=== PATIENT | male | born 1975 | race Caucasian/White ===

== ENCOUNTER 2017-06-01 09:46 | Emergency (ER) | payer OTHER ==
[2017-06-01 10:00] VITALS: BMI 28.0
[2017-06-01] MEDS ORDERED: Piperacillin/Tazobact 3.375 gm 100 ML IV STA (10:31)
--- NOTE | 2017-06-01 10:31 | C.PDOC ---
History Of Present Illness 41 y/o male presents to ED with complaints of onset Left 5th finger injury BRAKER PASSENGER TRAIN. 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 At ED patient is complaining of pain and denies any other associated symptoms at this time. Patient is right hand dominant L 5 FINGER INJURY ONSET BRAKER PASSENGER TRAIN. 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 CO PAIN, INJURY TO AREA. NO OTHER ASSOC INJURY. R HANDED. EXAM MILD DIST NONTOXIC EXT L HAND: +ROTATIONAL DEFORM DISTAL 5TH FINGER AT DIP. NAIL INTACT SKIN 3 CM SPIRAL LAC FROM L 5 DIP TO TIP OF PAD OF FINGER W ACTIVE BLEED; NO GROSS FB REMAINDER INTACT Time Seen by Provider: 06/01/17 10:26 Chief Complaint (Nursing): Abnormal Skin Integrity History Per: Patient History/Exam Limitations: no limitations Onset/Duration Of Symptoms: Hrs, Waxing/Waning Past Medical History Reviewed: Historical Data, Nursing Documentation, Vital Signs Vital Signs: Last Vital Signs Temp 98.2 F 06/01/17 11:46 Pulse 75 06/01/17 11:46 Resp 18 06/01/17 11:46 BP 120/71 06/01/17 11:46 Pulse Ox 98 06/01/17 11:46 Surgical History: No Surg Hx Family History: States: No Known Family Hx - Social History Hx Alcohol Use: Yes Hx Substance Use: No - Immunization History Hx Tetanus Toxoid Vaccination: No Hx Influenza Vaccination: No Hx Pneumococcal Vaccination: No Review Of Systems Except As Marked, All Systems Reviewed And Found Negative. Musculoskeletal: Positive for: Hand Pain Skin: Negative for: Rash Neurological: Negative for: Weakness, Numbness Physical Exam - Physical Exam Appears: Non-toxic, Other (Mild distress) Skin: Warm, Dry, Other (3cm spiral laceration from left 5th DIP to tip of PAD of finger w/active bleeding) Head: Normacephalic Eye(s): bilateral: Normal Inspection Oral Mucosa: Moist Neck: Normal ROM, Supple Extremity: Capillary Refill (<2 seconds), Deformity (Left hand rotational ), Other (No gross foreign body to left hand) Pulses: Left Radial: Normal, Right Radial: Normal Neurological/Psych: Oriented x3, Normal Motor, Normal Sensation ED Course And Treatment O2 Sat by Pulse Oximetry: 100 (RA) Pulse Ox Interpretation: Normal - Other Rad l 5 finger X-Ray: Interpreted by Me (fx distal phalanx) Progress - Re-Evaluation Re-evaluation Note: 06/01/17 10:44 D/W DR YANG: AWARE OF ER FINDINGS AND PLAN. ADVISES TO SEND PT DIRECTLY TO [address] [facility] [address] FOR EVALUATION TODAY. PT ADVISED OF PLAN AND AGREES W VANDANA. IV ABX, DC 06/01/17 14:30 Dr. Yang called ER, states evaluated pt in office, pt subsequently eloped prior to finishing office evaluation. He states should patient return to ed, no further intervention needed, no lac repair to be done. pt to take prescriptions as prescribed and follow up with hand surgery/clinic - Data Reviewed Data Reviewed: Diagnostic imaging, Old records - Continuity of Care Discussed pt. case with provider relations consultant/specialty: Other (HAND SURGERY) Disposition Counseled Patient/Family Regarding: Studies Performed, Diagnosis, Need For Followup, Rx Given - Disposition Referrals: Elías Yang MD [Staff Provider] - TREY THIBODEAUX [Other] Disposition: HOME/ ROUTINE Disposition Time: 10:48 Condition: IMPROVED Additional Instructions: GO IMMEDIATELY TO OFFICE OF HAND SURGEON AFTER ER DISCHARGE. Prescriptions: Amoxicillin/Clavulanate [Augmentin 875 MG-125 MG] 1 tab PO BID #14 tab Instructions: Laceration (ED), Finger Fracture (ED) Forms: [facility] (Nigerien), Work Excuse Print Language: ZAMBIAN - Clinical Impression Clinical Impression: Laceration of finger, Finger fracture - Scribe Statement The provider has reviewed the documentation as recorded by the Juventino Etienne All medical record entries made by the Sabineibrickey were at my direction and personally dictated by me. I have reviewed the chart and agree that the record accurately reflects my personal performance of the history, physical exam, medical decision making, and the department course for this patient. I have also personally directed, reviewed, and agree with the discharge instructions and disposition. Orthopedic Care Application Of:: Finger Splint
--- NOTE | 2017-06-01 10:41 | RAD ---
PROCEDURE: Left small finger radiographs. HISTORY: r/o fx COMPARISON: None. TECHNIQUE: AP radiograph of the left hand, as well as spot oblique and lateral images of left small finger were obtained. FINDINGS: LEFT SMALL FINGER: There is a complete oblique fracture of the 5th distal phalanx with 1 mm separation of the fractured ends. . A punctate the opacity perhaps chip fracture fragment or punctate foreign body along the radial side of the fractured sites is cyst suggested on the frontal view. Overlying bandaging no overlying soft tissue swelling suggested. No intra-articular joint extension of the fracture noted. Remainder of the left hand (as seen on the AP view) is grossly unremarkable. JOINTS: Normal. SOFT TISSUES: Normal. OTHER FINDINGS: None. IMPRESSION: Fracture
[2017-06-01 10:47] VITALS: RESP 18
[2017-06-01] MEDS ORDERED: Piperacillin/Tazobact 3.375 gm 100 ML IVPB ONE (11:20)
[2017-06-01 11:48] VITALS: BP 120/71; PULSE 75; TEMP 98.2
[2017-06-01 14:52] VITALS: O2SAT 100
== END 2017-06-01 11:48 | disposition home or self-care (01) ==
LOC: SUPCPDRO 09:46 → C.ER 09:46
DX: S61.217A Laceration without foreign body of left little finger without damage to nail, initial encounter (principal); S62.637A Displaced fracture of distal phalanx of left little finger, initial encounter for closed fracture; W31.89XA Contact with other specified machinery, initial encounter
CPT/HCPCS: 73140; 96365; 99285; J2543